=== PATIENT | female | born 2000 | race African-American/Black ===

== ENCOUNTER 2022-03-23 08:56 | Emergency (ER) | payer MEDICARE ==
[~2022-03-23] VITALS: Ht 172.7 cm; Wt 57.2 kg
[2022-03-23 10:14] LABS: CLARITY,URINE SL CLOUDY (CLEAR); COLOR,URINE YELLOW (YELLOW)
[2022-03-23 10:15] LABS: KETONES,URINE NEGATIVE (NEGATIVE); LEUKOCYTE ESTERASE ,URINE SMALL (NEGATIVE); NITRITE,URINE NEGATIVE (NEGATIVE); PROTEIN,URINE DIPSTICK NEGATIVE (NEGATIVE); URINE UROBILINOGEN 0.2 mg/dL (0.2 - 1)
[2022-03-23] MEDS ORDERED: DICYCLOMINE HCL20 MG PO (10:25)
[2022-03-23 10:33] LABS: WBC,URINE (MAN) >50 /HPF (0-5)
[2022-03-23 10:35] LABS: BACTERIA,URINE FEW /HPF; EPITHELIAL CELLS,URINE MODERATE /LPF; RBC,URINE 0-5 /HPF (0-5); TRANSITIONAL EPI CELLS,URINE RARE
== END 2022-03-23 10:34 | disposition home or self-care (01) ==
LOC: ER 09:11
DX: R10.84 Generalized abdominal pain (principal); N93.8 Other specified abnormal uterine and vaginal bleeding
CPT/HCPCS: 81001; 81025; 99282